=== PATIENT | male | born 1940 | race Caucasian/White ===

== ENCOUNTER 2022-08-24 09:18 | Emergency (ER) | payer OTHER, MEDICARE ==
[2022-08-24 09:32] VITALS: TEMP 98; BMI 30.1
[2022-08-24] MEDS ORDERED: SODIUM CHLORIDE 0.9% 1000 ML INFUS.BAG IV ONE (10:04)
[2022-08-24 10:40] LABS: HEMATOCRIT 46.8 % (35.4-49); HEMOGLOBIN 16.5 G/dL (11.7-16.9); MCH 31.7 pg (25.7-33.7); MCHC 35.3 g/dl (32.0-35.9); MEAN CELL VOLUME 89.9 fl (80-96); MEAN PLT VOLUME 8.1 fl (7.5-11.1); PLATELET COUNT 167.7 10^3/uL (134-434); RBC 5.21 10^6/uL (4.00-5.60); RDW 14.4 % (11.9-15.9); WHITE BLOOD COUNT 8.5 10^3/uL (4.0-10.8)
[2022-08-24] MEDS ORDERED: LIDOCAINE HCL 2% (20ML MULTI-DOSE VIAL) ONE (11:34)
[2022-08-24 11:45] LABS: CALCIUM 8.9 mg/dL (8.5-10.1)
[2022-08-24 11:46] LABS: BLOOD UREA NITROGEN 13.8 mg/dL (7-18)
[2022-08-24 11:51] LABS: BILIRUBIN,TOTAL 0.6 mg/dL (0.2-1); TOT PROT 6.9 g/dl (6.4-8.2)
[2022-08-24] MEDS ORDERED: ACETAMINOPHEN INJECTION 100 ML IVPB ONE (12:02)
[2022-08-24] MEDS ORDERED: ACETAMINOPHEN 1000 MG/100 ML BAG IVPB ONE (12:03)
[2022-08-24 12:15] VITALS: BP 159/77; PULSE 86; RESP 18
[2022-08-24] MEDS ORDERED: DIPHTH,PERTUSS(ACELL),TET 0.5 ML DISP.SYRIN IM ONE ×2 (12:40→12:42)
== END 2022-08-24 12:50 | disposition home or self-care (01) ==
LOC: FER 09:18
PROC: 0HQ0XZZ Repair Scalp Skin, External Approach (ICD-10-PCS; principal; 2022-08-24)
PROC: 3E033GC Introduction of Other Therapeutic Substance into Peripheral Vein, Percutaneous Approach (ICD-10-PCS; 2022-08-24)
PROC: 3E0234Z Introduction of Serum, Toxoid and Vaccine into Muscle, Percutaneous Approach (ICD-10-PCS; 2022-08-24)
DX: S01.01XA Laceration without foreign body of scalp, initial encounter (principal); W01.0XXA Fall on same level from slipping, tripping and stumbling without subsequent striking against object, initial encounter
CPT/HCPCS: 12002-25; 36415; 70450-TC; 72125-TC; 80053; 84484; 85027; 90471; 90715; 93005; 96374; 99285-25

== ENCOUNTER 2023-06-27 08:01 | Emergency (ER) | payer OTHER, MEDICARE ==
[2023-06-27] MEDS ORDERED: DIPHTH,PERTUSS(ACELL),TET 0.5 ML DISP.SYRIN IM ONE ×2 (08:18→09:24)
[2023-06-27 08:47] VITALS: RESP 18; TEMP 98; BMI 26.2
[2023-06-27 09:22] LABS: ALBUMIN 4.2 g/dl (3.4-5.0); BLOOD UREA NITROGEN 13.2 mg/dl (7-18); CALCIUM 8.9 mg/dl (8.5-10.1); POTASSIUM 4.1 mmol/L (3.5-5.1); SGOT/AST 18.1 U/L (15-37); SGPT/ALT 16.3 U/L (7-52); TOT PROT 6.7 g/dl (6.4-8.2)
[2023-06-27 09:26] LABS: MCH 30.5 pg (25.7-33.7); MEAN CELL VOLUME 89.6 fl (80-96); PLATELET COUNT 203.6 10^3/uL (134-434); RBC 5.58 10^6/uL (4.00-5.60); RDW 13.8 % (11.9-15.9)
[2023-06-27 09:46] VITALS: BP 185/103; PULSE 79
[2023-06-27 12:08] LABS: BILIRUBIN,TOTAL 0.9 mg/dL (0.2-1)
== END 2023-06-27 11:03 | disposition home or self-care (01) ==
LOC: FER 08:01
PROC: 3E0234Z Introduction of Serum, Toxoid and Vaccine into Muscle, Percutaneous Approach (ICD-10-PCS; principal; 2023-06-27)
DX: S00.81XA Abrasion of other part of head, initial encounter (principal); W01.198A Fall on same level from slipping, tripping and stumbling with subsequent striking against other object, initial encounter; Y92.480 Sidewalk as the place of occurrence of the external cause
CPT/HCPCS: 36415; 70450-TC; 72125-TC; 80053; 84484; 85027; 90471; 90715; 93005; 93010; 99285-25

== ENCOUNTER 2023-10-07 09:18 | Emergency (ER) | payer OTHER, MEDICARE ==
[2023-10-07] MEDS ORDERED: ACETAMINOPHEN 1000 MG/100 ML BAG IVPB ONE (09:37)
[2023-10-07 09:44] VITALS: BMI 26.2
[2023-10-07] MEDS ORDERED: ACETAMINOPHEN INJECTION 100 ML IVPB ONE (09:56)
[2023-10-07 10:06] LABS: INR 1.01 (0.83-1.09); PROTHROMBIN TIME (PATIENT) 11.7 SEC (9.7-13.0)
[2023-10-07 10:15] LABS: HEMATOCRIT 46.3 % (35.4-49); HEMOGLOBIN 15.8 G/dL (11.7-16.9); MCH 28.8 pg (25.7-33.7); MCHC 34.1 g/dl (32.0-35.9); MEAN CELL VOLUME 84.6 fl (80-96); PLATELET COUNT 229.1 10^3/uL (134-434); RBC 5.47 10^6/uL (4.00-5.60); RDW 14.3 % (11.9-15.9); WHITE BLOOD COUNT 13.7 10^3/uL (4.0-10.8)
[2023-10-07 10:24] LABS: ALBUMIN 4.5 g/dl (3.4-5.0); BILIRUBIN,TOTAL 1.7 mg/dl (0.2-1); CALCIUM 9.5 mg/dl (8.5-10.1); CREATININE 1.3 mg/dl (0.6-1.3); MAGNESIUM 2.4 mg/dL (1.8-2.4); PLATELET ESTIMATE ADEQUATE; POTASSIUM 3.7 mmol/L (3.5-5.1); TOT PROT 7.2 g/dl (6.4-8.2)
[2023-10-07] MEDS ORDERED: LACTATED RINGERS SOLUTION 1,000 ML/1,000 ML INFUS.BAG IV SCH (10:30)
[2023-10-07 12:13] LABS: LACTIC ACID 3.9 mmol/L (0.4-2.0)
[2023-10-07 12:39] VITALS: RESP 18
[2023-10-07 12:40] VITALS: TEMP 98.2
[2023-10-07 12:45] LABS: EPITHELIAL CELLS 0-5 /hpf
[2023-10-07 12:46] LABS: URINE MUCUS FEW
[2023-10-07 12:54] VITALS: BP 196/102; PULSE 87
[2023-10-07] MEDS ORDERED: cefTRIAXone SODIUM 1 GM VIAL ONE (12:56)
== END 2023-10-07 13:08 | disposition short-term general hospital (02) ==
LOC: FER 09:18
PROC: 3E033NZ Introduction of Analgesics, Hypnotics, Sedatives into Peripheral Vein, Percutaneous Approach (ICD-10-PCS; principal; 2023-10-07)
PROC: 3E033GC Introduction of Other Therapeutic Substance into Peripheral Vein, Percutaneous Approach (ICD-10-PCS; 2023-10-07)
DX: S22.42XA Multiple fractures of ribs, left side, initial encounter for closed fracture (principal); S27.1XXA Traumatic hemothorax, initial encounter; M62.82 Rhabdomyolysis; N39.0 Urinary tract infection, site not specified; R79.89 Other specified abnormal findings of blood chemistry; W19.XXXA Unspecified fall, initial encounter; Y92.9 Unspecified place or not applicable
CPT/HCPCS: 0241U-QW; 36415; 70450-TC; 70486-TC; 71260-TC; 72125-TC; 72128-TC; 72131-TC; 73070-TC-LT-FY; 74177-TC; 80053; 81003; 81015; 82550; 82553; 82962; 83605; 83690; 83735; 84443; 84484; 85027; 85610; 85730; 87086; 93005; 93308; 99285-25; Q9967